=== PATIENT | male | born 1935 | race Caucasian/White ===

== ENCOUNTER 2018-06-01 06:10 | Day surgery (SDC) | payer OTHER ==
[2018-05-30 16:15] VITALS: BMI 27.2
[2018-06-01] MEDS ORDERED: LIDOCAINE HCL 1%, 10 MG/ML (20ML VIAL) ONE (07:21)
[2018-06-01] MEDS ORDERED: BUPIVACAINE HCL/PF 0.5% (5MG/ML) 10 ML VIAL ONE (07:21)
[2018-06-01] MEDS ORDERED: LIDOCAINE HCL/PF 2% SDV 5ML VIAL ONE (07:29)
[2018-06-01] MEDS ORDERED: MIDAZOLAM HCL 2 MG/2 ML SINGLE DOSE VIAL ONE (07:30)
[2018-06-01] MEDS ORDERED: PROPOFOL 20 ML ONE (07:30)
[2018-06-01] MEDS ORDERED: ePHEDrine SULFATE 50 MG/1 ML AMPULE ONE (07:30)
[2018-06-01] MEDS ORDERED: SUCCINYLCHOLINE CHLORIDE 200 MG/10 ML VIAL ONE (07:30)
[2018-06-01] MEDS ORDERED: KETOROLAC TROMETHAMINE 30 MG/1 ML VIAL ONE (07:31)
[2018-06-01] MEDS ORDERED: DEXAMETHASONE SOD PHOSPHATE 4 MG/1 ML VIAL ONE (07:31)
[2018-06-01] MEDS ORDERED: SODIUM CHLORIDE 0.9% P/F 10 ML VIAL IJ ONE (07:32)
[2018-06-01] MEDS ORDERED: ONDANSETRON 4 MG/2 ML VIAL IVPUSH PRN (07:34)
[2018-06-01] MEDS ORDERED: LACTATED RINGERS SOLUTION 1,000 ML IV SCH (07:45)
--- NOTE | 2018-06-01 08:15 | HP ---
Satellite [facility] - Chief Complaint Chief Complaint: left hand pain and numbness History of Present Illness: left CTS History Source: Patient Limitations to Obtaining History: No Limitations - Past Medical History Allergies/Adverse Reactions: Allergies Allergy/AdvReac Type Severity Reaction Status Date / Time No Known Drug Allergies Allergy Verified 06/01/18 06:54 - Current Medications Current Medications: Home Medications Medication Instructions Recorded Allopurinol [Zyloprim -] 100 mg PO DAILY 05/30/18 Amlodipine Besylate 10 mg PO DAILY 05/30/18 Aspirin Coated [Ecotrin -] 81 mg PO DAILY 05/30/18 Cholecalciferol (Vitamin D3) 2,000 unit PO DAILY 05/30/18 [Vitamin D] Glucosamine/D3/Boswellia Suly 1 each PO DAILY 05/30/18 [Osteo Bi-Flex Tablet] Insulin Glargine,Hum.rec.anlog 25 units SQ HS 05/30/18 [Lantus Solostar PEN (NF)] Lactobacillus 3/Fos/Pantethine 1 each PO DAILY 05/30/18 [Probiotic & Acidophilus Cap] Latanoprost 0.005% Eye Drops 1 drop OU HS 05/30/18 [Xalatan 0.005% Eye Drops -] Multivit-Min/FA/Lycopen/Lutein 1 each PO DAILY 05/30/18 [Centrum Silver Men Tablet] [place]-3 Fatty Acids/Fish Oil [Fish 1 tab PO DAILY 05/30/18 Oil 1,000 mg Capsule] Ramipril [Altace] 5 mg PO DAILY 05/30/18 Simvastatin [Zocor -] 20 mg PO HS 05/30/18 Tamsulosin HCl 0.4 mg PO HS 05/30/18 Satellite Physical Exam - Physical Examination Vital Signs: Vital Signs Period Temp Pulse Resp BP Sys/Guzman Pulse Ox Last 24 Hr 98.1 F 80 18 147/78 100 General Appearance: Well Nourished ENT: Clear Lung: Clear to auscultation Heart: Regular rate & rhythm Breasts: Soft Abdomen: Soft Extremities: No edema Satellite Impression/Plan - Impression/Plan Impression: left CTS Operative Procedure: left CTR Date to be Performed: 06/01/18
[2018-06-01] MEDS ORDERED: ceFAZolin SODIUM 1 GM VIAL IVPB ONE (08:25)
[2018-06-01] MEDS ORDERED: BUPIVACAINE HCL/PF (5 MG/ML) 30 ML VIAL IJ ONE (08:37)
[2018-06-01] MEDS ORDERED: LIDOCAINE HCL 1%, 10 MG/ML (20ML VIAL) PNB ONE (08:37)
--- NOTE | 2018-06-01 09:01 | OP ---
Operative Note - Note: Operative Date: 06/01/18 Pre-Operative Diagnosis: left CTS Operation: left CTR, tenosynovectomy Post-Operative Diagnosis: Same as Pre-op Surgeon: Pierce Mendoza Anesthesiologist/PILLOWCASE CUTTER: Rios Ochoa Anesthesia: Local, MAC Specimens Removed: tenosynovium Estimated Blood Loss (mls): 0 Drains, Volume Out (mls): 0 Blood Volume Replaced (mls): 0 Fluid Volume Replaced (mls): 500 Operative Report Dictated: Yes
[2018-06-01 09:45] VITALS: TEMP 97.5
--- NOTE | 2018-06-01 09:45 | SPEC ---
DATE OF OPERATION: PREOPERATIVE DIAGNOSIS: Left carpal tunnel syndrome. POSTOPERATIVE DIAGNOSIS: Left carpal tunnel syndrome. OPERATION: Left carpal tunnel release and tenosynovectomy. SURGEON: Pierce Mendoza MD ASSISTANTS: None. ANESTHESIOLOGIST: Yunior ANESTHESIA: MAC with local anesthetic 12 mL of 0.5% Marcaine and 1% Lidocaine mixed. DRAINS: None. COMPLICATIONS: None. BLOOD LOSS: None. BLOOD GIVEN: None. SPECIMENS: Tenosynovium, left wrist. FLUID REPLACEMENT: 500 mL of Plasmalyte. INDICATIONS: This patient is an 83-year-old male with a preoperative diagnosis of severe long-term left carpal tunnel syndrome. After understanding the potential risks, complications, alternatives and benefits of surgery versus nonsurgical treatment, the patient elected to undergo this procedure. DESCRIPTION OF PROCEDURE: The patient was brought to the operating room, peripheral IV placed, and IV sedation given. He received 1 g of IV Ancef. MAC anesthesia was induced. A tourniquet was applied to the left upper arm and the left upper extremity was prepped and draped in sterile fashion. The entire case was done under 3.8 loupe magnification. A marking pen was utilized to annmarie out a longitudinal incision in an already existing skin crease. Twenty mL of 0.5% Marcaine mixed with 1% Lidocaine was injected in and around the surgical incision. The left upper extremity was elevated, exsanguinated with an Esmarch bandage and the tourniquet inflated to 250 mmHg. A No. 15 scalpel blade was utilized to cut down through the skin. Subcutaneous hemostasis was achieved with the bipolar cautery. Dissection was done through the superficial palmar fascia. Self-retaining retractors were placed into the wound. Under direct visualization, the transverse carpal ligament was transected with a No. 15 scalpel blade, exposing the median nerve and the contents of the carpal tunnel. The distal and proximal extents of the release were completed with a Littler scissor and checked with irrigation and my small finger. They were seen to be complete. Limited dissection was done on the radial side of the median nerve and more extensive dissection was done on the ulnar side of the median nerve. The patients nerve was seen to be quite compressed by epineurium and therefore a limited epineurotomy was performed. A Ragnell retractor was used to gently retract the median nerve in a radial direction. The patient had a lot of tenosynovitis and therefore a tenosynovectomy was performed off all 9 flexor tendons. This was passed off the field as tenosynovium left wrist. The floor of the carpal tunnel was checked. There were no abnormal masses or ganglion cysts. The area was copiously irrigated and washed out and closure begun. Undyed 4-0 Vicryl was used to close the deep dermal layer. Final skin reapproximation was done with horizontal mattress 4-0 nylon sutures. The area was then washed and dried, covered with Xeroform, 4x4s, fluffs between the fingers, Webril and a 4-inch plaster roll was utilized to make a volar splint, which was then wrapped with Winter and Coban. The tourniquet was taken down after a total tourniquet time of 15 minutes. There were no complications during the case. The patient tolerated the procedure well and was brought to the ambulatory recovery room in stable condition. Eladio [id number]
[2018-06-01] MEDS ORDERED: DESFLURANE GAS 240 ML BOTTLE IH ONE (10:45)
[2018-06-01 11:50] VITALS: BP 138/63; PULSE 83
--- NOTE | 2018-06-02 16:00 | PATH ---
Surgical Pathology Report Patient Name: SUZANNE MAO [facility]. Rec. #: [id number] /Age/Gender: 1935 (Age: 83) / M Account: [id number] Location: [facility] SURGICAL Taken: 06/01/2018 Received: 06/01/2018 Reported: 06/02/2018 Physicians: Pierce Mendoza M.D. Specimen(s) Received LEFT TENOSYNOVIUM Clinical History Left carpal tunnel Final Diagnosis LEFT TENOSYNOVIUM, EXCISIONAL BIOPSY: TENOSYNOVIAL TISSUE WITH FIBROSIS AND DEGENERATIVE CHANGE. Electronically Signed Hieu Sena M.D. Gross Description Received in formalin labeled "left tenosynovium," is a 1.2 x 0.6 x 0.3 cm aggregate of hernandez-yellow portions of soft tissue, consistent with tenosynovium. The specimen is entirely submitted in one cassette. /06/01/201806/01/2018
== END 2018-06-01 11:50 | disposition home or self-care (01) ==
LOC: JASU-SURG 06:10
PROVIDERS: ATTEND Orthopaedic Surgery
PROC: 0LT60ZZ Resection of Left Lower Arm and Wrist Tendon, Open Approach (ICD-10-PCS; 2018-06-01)
PROC: 01N50ZZ Release Median Nerve, Open Approach (ICD-10-PCS; principal; 2018-06-01 08:00)
DX: G56.02 Carpal tunnel syndrome, left upper limb (principal); M65.842 Other synovitis and tenosynovitis, left hand
CPT/HCPCS: 82962; 88304-TC; 94760

== ENCOUNTER 2019-03-14 04:35 | Day surgery (SDC) | payer OTHER ==
[2019-03-13 12:32] VITALS: BMI 29.1
[2019-03-14] MEDS ORDERED: BUPIVACAINE HCL/PF 0.5% (5MG/ML) 10 ML VIAL ONE (07:45)
[2019-03-14] MEDS ORDERED: ceFAZolin SODIUM 1 GM VIAL ONE (08:00)
[2019-03-14] MEDS ORDERED: SODIUM CHLORIDE 0.9% P/F 10 ML VIAL IJ ONE (08:00)
[2019-03-14] MEDS ORDERED: KETOROLAC TROMETHAMINE 30 MG/1 ML VIAL ONE (08:00)
--- NOTE | 2019-03-14 08:24 | HP ---
Satellite [facility] - Chief Complaint Chief Complaint: right hand pain, numbness, tingling, weakness History of Present Illness: right CTS History Source: Patient Limitations to Obtaining History: No Limitations - Past Medical History Allergies/Adverse Reactions: Allergies Allergy/AdvReac Type Severity Reaction Status Date / Time No Known Drug Allergies Allergy Verified 03/14/19 07:54 - Current Medications Current Medications: Home Medications Medication Instructions Recorded Allopurinol [Zyloprim -] 100 mg PO DAILY 05/30/18 Amlodipine Besylate 10 mg PO DAILY 05/30/18 Aspirin Coated [Ecotrin -] 81 mg PO DAILY 05/30/18 Cholecalciferol (Vitamin D3) 2,000 unit PO DAILY 05/30/18 [Vitamin D] Insulin Glargine,Hum.rec.anlog 25 units SQ DAILY 05/30/18 [Lantus Solostar PEN (NF)] Lactobacillus 3/Fos/Pantethine 1 each PO DAILY 05/30/18 [Probiotic & Acidophilus Cap] Latanoprost 0.005% Eye Drops 1 drop OU HS 05/30/18 [Xalatan 0.005% Eye Drops -] Multivit-Min/FA/Lycopen/Lutein 1 each PO DAILY 05/30/18 [Centrum Silver Men Tablet] [place]-3 Fatty Acids/Fish Oil [Fish 1 tab PO DAILY 05/30/18 Oil 1,000 mg Capsule] Ramipril [Altace] 5 mg PO DAILY 05/30/18 Simvastatin [Zocor -] 20 mg PO HS 05/30/18 Tamsulosin HCl 0.4 mg PO HS 05/30/18 Acetaminophen [Tylenol Arthritis] 650 mg PO DAILY 03/13/19 Insulin Lispro [Humalog] 100 unit SQ PRN 03/13/19 Saw Sharon Fruit [Saw Sharon] 1,200 mg PO DAILY 03/13/19 Satellite Physical Exam - Physical Examination Vital Signs: Vital Signs Period Temp Pulse Resp BP Sys/Ugzman Pulse Ox Last 24 Hr 98.4 F 86 18 151/67 96 General Appearance: Well Nourished ENT: Clear Lung: Clear to auscultation Heart: Regular rate & rhythm Breasts: Soft Abdomen: Soft Extremities: No edema Satellite Impression/Plan - Impression/Plan Impression: right CTS Operative Procedure: right CTR, tenosynovectomy Date to be Performed: 03/14/19
[2019-03-14] MEDS ORDERED: ceFAZolin SODIUM 1 GM VIAL IVPB ONE (08:30)
[2019-03-14] MEDS ORDERED: PROPOFOL 20 ML ONE (08:33)
--- NOTE | 2019-03-14 09:03 | OP ---
Operative Note - Note: Operative Date: 03/14/19 ([facility]) Pre-Operative Diagnosis: right cts Operation: right ctr Post-Operative Diagnosis: Same as Pre-op Surgeon: Pierce Mendoza Anesthesiologist/HOURLY MANAGER: Bridgette Sparks Anesthesia: General, Local Specimens Removed: tenosynovium Estimated Blood Loss (mls): 0 (tourniquet) Operative Report Dictated: Yes
[2019-03-14] MEDS ORDERED: LIDOCAINE HCL 1%, 10 MG/ML (20ML VIAL) NR ONE (09:05)
[2019-03-14] MEDS ORDERED: BUPIVACAINE HCL/PF (5 MG/ML) 30 ML VIAL IJ ONE (09:06)
--- NOTE | 2019-03-14 09:50 | SPEC ---
DATE OF OPERATION: 03/14/2019 PREOPERATIVE DIAGNOSIS: Right carpal tunnel syndrome. POSTOPERATIVE DIAGNOSIS: Right carpal tunnel syndrome. PROCEDURE: Right carpal tunnel release and tenosynovectomy. SURGEON: Pierce Mendoza MD ASSISTANTS: None. ANESTHESIA: Nigel Bhardwaj CRNA, local injection 10 mL 0.5% Marcaine with lidocaine mixed, and MAC. DRAINS: None. COMPLICATIONS: None. SPECIMEN: Tenosynovium, right wrist. BLOOD LOSS: None. BLOOD GIVEN: None. FLUID REPLACEMENT: 500 mL. This patient is an 83-year-old right-hand dominant male with a preoperative diagnosis of severe long-term right carpal tunnel syndrome. After understanding the potential risks, complications, alternatives, and benefits of surgical versus nonsurgical treatment, the patient elected to undergo this procedure. DESCRIPTION OF PROCEDURE: The patient was brought to the operating room, peripheral IV placed and intravenous sedation was given. One gram of intravenous Ancef was given. MAC anesthesia was induced. A tourniquet was applied to the right upper arm and the right upper extremity was prepped and draped in sterile fashion. The entire case was done under 3.8 loupe magnification. A marking pen was utilized to annmarie out a longitudinal incision in an already existing skin crease. Twenty mL of 0.5% Marcaine mixed with 1% Lidocaine was injected in and around the surgical incision. The right upper extremity was elevated, exsanguinated with an Esmarch bandage and the tourniquet inflated to 250 mmHg. A No. 15 scalpel blade was utilized to cut down through the skin. Subcutaneous hemostasis was achieved with the bipolar cautery. Dissection was done through the superficial palmar fascia. Self-retaining retractors were placed into the wound. Under direct visualization, the transverse carpal ligament was transected with a No. 15 scalpel blade, exposing the median nerve and the contents of the carpal tunnel. The distal and proximal extents of the release were completed with a Littler scissor and checked with irrigation and my small finger. They were seen to be complete. Limited dissection was done on the radial side of the median nerve and more extensive dissection was done on the ulnar side of the median nerve. The patients nerve was seen to be quite compressed by epineurium and therefore a limited epineurotomy was performed. A Ragnell retractor was used to gently retract the median nerve in a radial direction. The patient had a lot of tenosynovitis and therefore a tenosynovectomy was performed off all 9 flexor tendons. This was passed off the field as tenosynovium right wrist. The floor of the carpal tunnel was checked. There were no abnormal masses or ganglion cysts. The area was copiously irrigated and washed out and closure begun. Undyed 4-0 Vicryl was used to close the deep dermal layer. Final skin reapproximation was done with horizontal mattress 4-0 nylon sutures. The area was then washed and dried, covered with Xeroform, 4x4s, fluffs between the fingers, Webril and a 4-inch plaster roll was utilized to make a volar splint, which was then wrapped with Winter and Coban. The tourniquet was taken down after a total tourniquet time of 18 minutes. There were no complications during the case. The patient tolerated the procedure well and was brought to the ambulatory recovery room in stable condition. Eladio [id number]
[2019-03-14] MEDS ORDERED: oxyCODONE HCL 5 MG TABLET PO PRN (09:52)
[2019-03-14] MEDS ORDERED: ONDANSETRON 4 MG/2 ML VIAL IVPUSH PRN (09:52)
[2019-03-14] MEDS ORDERED: LACTATED RINGERS SOLUTION 1,000 ML IV SCH (10:00)
[2019-03-14 11:43] VITALS: TEMP 97.8
[2019-03-14 14:02] VITALS: BP 123/61; PULSE 79
--- NOTE | 2019-03-16 10:41 | PATH ---
Surgical Pathology Report Patient Name: SUZANNE MAO Med. Rec. #: [id number] /Age/Gender: 1935 (Age: 83) / M Account: [id number] Location: [facility] SURGICAL Taken: 03/14/2019 Received: 03/14/2019 Reported: 03/16/2019 Physicians: Pierce Mendoza M.D. Specimen(s) Received TENOSYNOVIUM RIGHT WRIST Clinical History Carpal tunnel syndrome Final Diagnosis TENOSYNOVIUM, RIGHT WRIST, RELEASE: TENOSYNOVIUM. Electronically Signed Natalia Paul M.D. Gross Description Received in formalin, labeled "tenosynovium, right wrist" are four portions of glistening white soft tissue ranging from 0.5-1.4 cm in greatest dimension. Entirely submitted in one cassette. AE/03/14/2019 ebram/03/14/2019
== END 2019-03-14 13:20 | disposition home or self-care (01) ==
LOC: JASU-SURG 04:35
PROVIDERS: ATTEND Orthopaedic Surgery
PROC: 01N50ZZ Release Median Nerve, Open Approach (ICD-10-PCS; principal; 2019-03-14 09:00)
DX: G56.01 Carpal tunnel syndrome, right upper limb (principal)
CPT/HCPCS: 82962; 88304-TC; 94760

== ENCOUNTER 2019-03-18 09:40 | Inpatient (IN) | payer OTHER ==
[2019-03-18 10:06] VITALS: BMI 27.7
--- NOTE | 2019-03-18 10:29 | PDOC ---
History of Present Illness - General Chief Complaint: Injury Stated Complaint: FALL Time Seen by Provider: 03/18/19 10:07 History Source: Patient Exam Limitations: No Limitations - History of Present Illness Initial Comments: 83 yo M history anemia, CHF, DM, BPH, HTN, HL presents with R hip pain s/p fall approximately on 03/14. He states that he had same day surgery for R carpel tunnel release, fell later that day, injuring his R hip. He has been ambulating with his walker as per usual, however, he notes that he has continued to have pain with ambulation, so he sought evaluation. Denies weakness, numbness. No additional falls. No other injuries. Past History - Past Medical History Allergies/Adverse Reactions: Allergies Allergy/AdvReac Type Severity Reaction Status Date / Time No Known Drug Allergies Allergy Verified 03/14/19 07:54 Home Medications: Ambulatory Orders Allopurinol [Zyloprim -] 100 mg PO DAILY 05/30/18 Amlodipine Besylate 10 mg PO DAILY 05/30/18 Aspirin Coated [Ecotrin -] 81 mg PO DAILY 05/30/18 Cholecalciferol (Vitamin D3) [Vitamin D3] 2,000 unit PO DAILY 05/30/18 Insulin Glargine,Hum.rec.anlog [Lantus Solostar PEN -] 25 units SQ DAILY Lactobacillus 3/Fos/Pantethine [Probiotic & Acidophilus Cap] 1 each PO DAILY Latanoprost 0.005% Eye Drops [Xalatan 0.005% Eye Drops -] 1 drop OU HS 05/30/18 Multivit-Min/FA/Lycopen/Lutein [Centrum Silver Men Tablet] 1 each PO DAILY 05/30 [place]-3 Fatty Acids/Fish Oil [Fish Oil 1,000 mg Capsule] 1 tab PO DAILY Ramipril [Altace] 5 mg PO DAILY 05/30/18 Simvastatin [Zocor -] 20 mg PO HS 05/30/18 Tamsulosin HCl 0.4 mg PO HS 05/30/18 Acetaminophen [Tylenol Arthritis] 650 mg PO DAILY 03/13/19 Insulin Lispro [Humalog] 100 unit SQ PRN 03/13/19 Saw Campbell Fruit [Saw Campbell] 1,200 mg PO DAILY 03/13/19 Hydrocodone/Acetaminophen [Hydrocodone-Acetamin 5-325 mg] 1 each PO Q6H #20 tablet MDD 4 03/14/19 Anemia: Yes Cardiac Disorders: Yes (angiogram negative) CHF: Yes Diabetes: Yes GI Disorders: No Disorders: Yes (BPH) HTN: Yes Hypercholesterolemia: Yes Liver Disease: No Thyroid Disease: No - Surgical History Orthopedic Surgery: Yes (carpal tunnel left) - Suicide/Smoking/Psychosocial Hx Smoking History: Never smoked Have you smoked in the past 12 months: No Hx Alcohol Use: No Drug/Substance Use Hx: No Substance Use Type: None Review of Systems - Review of Systems Able to Perform ROS?: Yes Comments:: GENERAL/CONSTITUTIONAL: No fever or chills. No weakness. HEAD, EYES, EARS, NOSE AND THROAT: No change in vision. No ear pain or discharge. No sore throat. CARDIOVASCULAR: No chest pain or shortness of breath. RESPIRATORY: No cough, wheezing, or hemoptysis. GASTROINTESTINAL: No nausea, vomiting, diarrhea or constipation. GENITOURINARY: No dysuria, frequency, or change in urination. MUSCULOSKELETAL: +R hip pain. No neck or back pain. SKIN: No rash. NEUROLOGIC: No headache, vertigo, loss of consciousness, or change in strength/ sensation. ENDOCRINE: No increased thirst. No abnormal weight change. HEMATOLOGIC/LYMPHATIC: No anemia, easy bleeding, or history of blood clots. ALLERGIC/IMMUNOLOGIC: No hives or skin allergy. *Physical Exam - Vital Signs Last Vital Signs Temp Pulse Resp BP Pulse Ox 98.4 F 80 20 125/64 96 03/18/19 10:00 03/18/19 10:00 03/18/19 10:00 03/18/19 10:03/18/19 10:00 - Physical Exam Comments: GENERAL: Awake, alert, and fully oriented, in no acute distress HEAD: No signs of trauma EYES: PERRLA, EOMI, sclera anicteric, conjunctiva clear ENT: Auricles normal inspection, hearing grossly normal, nares patent, oropharynx clear without exudates. Moist mucosa NECK: Normal ROM, supple, no lymphadenopathy, JVD, or masses LUNGS: Breath sounds equal, clear to auscultation bilaterally. No wheezes, and no crackles HEART: Regular rate and rhythm, normal S1 and S2, no murmurs, rubs or gallops ABDOMEN: Soft, nontender, normoactive bowel sounds. No guarding, no rebound. No masses EXTREMITIES: R hip with ecchymosis overlying the hip joint. FROM. +Tenderness over the joint. No tenderness to the pelvis. R wrist in post-op splint. Remainder of extremities with normal range of motion, no edema. No clubbing or cyanosis. No cords, erythema, or tenderness NEUROLOGICAL: Cranial nerves II through XII grossly intact. Normal speech. Motor and sensation intact SKIN: Warm, Dry, normal turgor, no rashes or lesions noted. Heart Score/ECG Review - ECG Impressions Comment:: EKG read 11:28- sinus rhythm, 1st degree AV block with PACs ED Treatment Course - LABORATORY CBC & Chemistry Diagram: 03/18/19 11:16 03/18/19 11:16 Medical Decision Making - Medical Decision Making 03/18/19 11:[address] Silvestre for hip fx. Pt just had a carpal tunnel repair by Dr. Mendoza . 03/18/19 11:51 Case d/w Dr. Silvestre, will operate tomorrow. NPO p midnight, no aspirin. 03/18/19 12:03 Patient accepted to hospitalist service, Dr. Norris. *DC/Admit/Observation/Transfer Diagnosis at time of Disposition: Closed right hip fracture Qualifiers: Encounter type: initial encounter Qualified Code(s): S72.001A - Fracture of unspecified part of neck of right femur, initial encounter for closed fracture - Discharge Dispostion Condition at time of disposition: Stable Decision to Admit order: Yes - Referrals - Patient Instructions - Post Discharge Activity
[2019-03-18 11:26] LABS: BASO % 0.7 % (0-2.0); EOS % 4.8 % (0-4.5); HEMATOCRIT 29.4 % (35.4-49); HEMOGLOBIN 9.9 GM/dL (11.7-16.9); LYMPH % 21.3 % (8-40); MCH 31.5 pg (25.7-33.7); MCHC 33.8 g/dl (32.0-35.9); MEAN CELL VOLUME 93.3 fl (80-96); MEAN PLT VOLUME 7.9 fl (7.5-11.1); NEUT % 66.2 % (42.8-82.8); PLATELET COUNT 217 K/MM3 (134-434); RBC 3.15 M/mm3 (4.00-5.60); RDW 13.1 % (11.9-15.9); WHITE BLOOD COUNT 6.3 K/mm3 (4.0-10.0)
[2019-03-18 11:39] LABS: INR 1.04 (0.83-1.09); PROTHROMBIN TIME (PATIENT) 12.3 SEC (9.7-13.0)
[2019-03-18 11:48] LABS: ALBUMIN 3.2 g/dl (3.4-5.0); BILIRUBIN,TOTAL 0.5 mg/dL (0.2-1); CALCIUM 8.7 mg/dL (8.5-10.1); CREATININE 1.4 mg/dL (0.55-1.3); POTASSIUM 4.7 mmol/L (3.5-5.1); TOT PROT 6.5 g/dl (6.4-8.2)
[2019-03-18] MEDS ORDERED: ACETAMINOPHEN 325 MG TABLET (FP) PO ONE (12:42)
[2019-03-18] MEDS ORDERED: ACETAMINOPHEN 325 MG TABLET (FP) ONE (12:47)
--- NOTE | 2019-03-18 13:10 | HP ---
Admitting History and Physical - Admission Chief Complaint: RIGHT HIP PAIN/FALL 4 DAYS AGO History Source: Patient, Medical Record Limitations to Obtaining History: Physical Impairment - Past Medical History [employer]: Yes: Peripheral Neuropathy Cardiovascular: Yes: CHF, HTN, Hyperlipdemia Musculoskeletal: Yes: Other (left club foot) Endocrine: Yes: Diabetes Mellitus Additional Past Medical History: anemia, CHF, DM, BPH, HTN, HLD - Past Surgical History Additional Past Surgical History: left carpal tunnel surgery 06/01/2018 right carpal tunnel surgery 03/14/2019 - Smoking History Smoking history: Never smoked Have you smoked in the past 12 months: No - Alcohol/Substance Use Hx Alcohol Use: No History of Substance Use: reports: None - Social History ADL: Independent History of Recent Travel: No Home Medications - Allergies Allergies/Adverse Reactions: Allergies Allergy/AdvReac Type Severity Reaction Status Date / Time No Known Drug Allergies Allergy Verified 03/14/19 07:54 - Home Medications Home Medications: Ambulatory Orders Allopurinol [Zyloprim -] 100 mg PO DAILY 05/30/18 Amlodipine Besylate 10 mg PO DAILY 05/30/18 Aspirin Coated [Ecotrin -] 81 mg PO DAILY 05/30/18 Cholecalciferol (Vitamin D3) [Vitamin D3] 2,000 unit PO DAILY 05/30/18 Insulin Glargine,Hum.rec.anlog [Lantus Solostar PEN -] 25 units SQ DAILY Lactobacillus 3/Fos/Pantethine [Probiotic & Acidophilus Cap] 1 each PO DAILY Latanoprost 0.005% Eye Drops [Xalatan 0.005% Eye Drops -] 1 drop OU HS 05/30/18 Multivit-Min/FA/Lycopen/Lutein [Centrum Silver Men Tablet] 1 each PO DAILY 05/30 [place]-3 Fatty Acids/Fish Oil [Fish Oil 1,000 mg Capsule] 1 tab PO DAILY Ramipril [Altace] 5 mg PO DAILY 05/30/18 Simvastatin [Zocor -] 20 mg PO HS 05/30/18 Tamsulosin HCl 0.4 mg PO HS 05/30/18 Acetaminophen [Tylenol Arthritis] 650 mg PO DAILY 03/13/19 Insulin Lispro [Humalog] 100 unit SQ PRN 03/13/19 Saw [place] Fruit [Saw Boone] 1,200 mg PO DAILY 03/13/19 Hydrocodone/Acetaminophen [Hydrocodone-Acetamin 5-325 mg] 1 each PO Q6H #20 tablet MDD 4 03/14/19 Home Medications (free text): PATIENT TOOK ASA 81MG TODAY ALONG WITH HIS CARDIAC MEDS Review of Systems - Review of Systems Constitutional: reports: No Symptoms Eyes: reports: No Symptoms HENT: reports: No Symptoms Neck: reports: No Symptoms Cardiovascular: reports: No Symptoms Respiratory: reports: No Symptoms Gastrointestinal: reports: No Symptoms Genitourinary: reports: No Symptoms Musculoskeletal: reports: Joint Pain (right hip pain s/p fall), Other (right wrist pain s/p carpal tunnel surgery) Integumentary: reports: Bruising (right hip large purple bruising) Neurological: reports: Unsteady Gait Endocrine: reports: No Symptoms Hematology/Lymphatic: reports: No Symptoms Psychiatric: reports: No Symptoms Pain Intensity: 5 Physical Examination Vital Signs: Vital Signs Temperature 98.4 F 03/18/19 10:25 Pulse Rate 80 03/18/19 10:25 Respiratory Rate 20 03/18/19 10:25 Blood Pressure 125/64 03/18/19 10:25 O2 Sat by Pulse Oximetry (%) 96 03/18/19 10:00 Findings/Remarks: In no acute distress, resting in bed. denies dizziness or chest pain Constitutional: Yes: Well Nourished Eyes: Yes: WNL HENT: Yes: WNL Neck: Yes: WNL Cardiovascular: Yes: Regular Rate and Rhythm Respiratory: Yes: WNL Gastrointestinal: Yes: Normal Bowel Sounds ...Rectal Exam: Yes: Deferred Renal/: Yes: WNL Breast(s): Yes: WNL Musculoskeletal: Yes: Muscle Pain, Muscle Weakness, Other Extremities: Yes: Deformity, Shortened (right hip shortening) Edema: LLE: 3+ (non pitting - left club foot), RLE: 3+ (non pitting) Peripheral Pulses: Left Radial: 4+, Right Radial: 1+ (on soft cast) Integumentary: Yes: Bruising Wound/Incision: Yes: Other Neurological: Yes: WNL, Alert, Oriented, Unsteady Gait ...Motor Strength: LLE (club foot) Psychiatric: Yes: Alert, Oriented Labs: CBC, BMP 03/18/19 11:16 03/18/19 11:16 Imaging - Results X-ray: Image Reviewed EKG: Image Reviewed Problem List - Problems (1) Closed right hip fracture Assessment/Plan: Hip Xray with impacted right hip fracture. For surgical evaluation with orthopedics. will initiate/coordinate pre op clearance, chest xray, npo at midnight, type and screen, labs in a.m. pt/inr. SCDs. NPO at midnight Please note that patient reports taking his ASA 81mg this a.m. Cardiology clearance prior to surgery Code(s): S72.001A - FRACTURE OF UNSP PART OF NECK OF RIGHT FEMUR, INIT Qualifiers: Encounter type: initial encounter Qualified Code(s): S72.001A - Fracture of unspecified part of neck of right femur, initial encounter for closed fracture (2) Congestive heart failure (CHF) Assessment/Plan: No clinical signs of volume overload. monitor intake and output Code(s): I50.9 - HEART FAILURE, UNSPECIFIED (3) Hypertension Assessment/Plan: Continue home medications Monitor BP Code(s): I10 - ESSENTIAL (PRIMARY) HYPERTENSION (4) Hyperlipemia Assessment/Plan: Continue home statins lipid panel in a.m. Code(s): E78.5 - HYPERLIPIDEMIA, UNSPECIFIED (5) Diabetes mellitus Assessment/Plan: novolog SS, BGMS. hmga1c in a.m. diabetic diet Code(s): E11.9 - TYPE 2 DIABETES MELLITUS WITHOUT COMPLICATIONS Qualifiers: Diabetes mellitus type: type 2 (6) Anemia Assessment/Plan: iron studies, cbc in a.m. Code(s): D64.9 - ANEMIA, UNSPECIFIED (7) Fall due to stumbling Assessment/Plan: mechanical fall. PT after surgery, will need rehab. SW consulted. Code(s): W01.0XXA - FALL SAME LEV FROM SLIP/TRIP W/O STRIKE AGAINST OBJECT, INIT (8) Prophylactic measure Assessment/Plan: fen no ivf in the setting of CHF monitor electrolytes diabetic diet, npo midnight 03/19/19 prophy SCDs Code(s): Z29.9 - ENCOUNTER FOR PROPHYLACTIC MEASURES, UNSPECIFIED Assessment/Plan Patient is an 83 year old male with a significant past medical history of anemia , CHF, diabetes, BPH, hypertension, hyperlipidemia presents with right hip fracture. Patient states that he had right tunnel carpal tunnel surgery, after surgery he lost his balance out of the hospital with his walker and landed on his right hip. Initially felt well, but right hip pain worsened and persisted prompting an ED visit. He denies any LOC loss, dizziness, denies any fever, chills. Has not fallen since that initial fall. See above problem list Visit type - Emergency Visit Emergency Visit: Yes ED Registration Date: 03/18/19 Care time: The patient presented to the Emergency Department on the above date and was hospitalized for further evaluation of their emergent condition. - New Patient This patient is new to me today: Yes Date on this admission: 03/18/19 - Critical Care Critical Care patient: No
--- NOTE | 2019-03-18 13:41 | CON.CARD ---
Consult Consult Specialty:: Cardiology Referred by:: Medicine/Ortho Reason for Consultation:: preop evaluation - History of Present Illness Chief Complaint: fall hip pain History of Present Illness: 83 yo M history anemia, CHF chronic diastolic, abnormal stress [place] [facility] [place] Dr Elijah Dockery), DM, BPH, HTN, chol admitted with R hip pain s/p fall on 03/14. He states that he had same day surgery for R carpel tunnel release, fell on his way out of the hospital, injuring his R hip, found with hip fracture. No chest pain, sob, orthopnea, pnd or edema. Exercise tolerance at baseline is limited by DJD. He is awaiting right hip surgery. - History Source History Provided By: Patient, Medical Record - Alcohol/Substance Use Hx Alcohol Use: No - Smoking History Smoking history: Never smoked Have you smoked in the past 12 months: No Home Medications - Allergies Allergies/Adverse Reactions: Allergies Allergy/AdvReac Type Severity Reaction Status Date / Time No Known Drug Allergies Allergy Verified 03/14/19 07:54 - Home Medications Home Medications: Ambulatory Orders Allopurinol [Zyloprim -] 100 mg PO DAILY 05/30/18 Amlodipine Besylate 10 mg PO DAILY 05/30/18 Aspirin Coated [Ecotrin -] 81 mg PO DAILY 05/30/18 Cholecalciferol (Vitamin D3) [Vitamin D3] 2,000 unit PO DAILY 05/30/18 Insulin Glargine,Hum.rec.anlog [Lantus Solostar PEN -] 25 units SQ DAILY Lactobacillus 3/Fos/Pantethine [Probiotic & Acidophilus Cap] 1 each PO DAILY Latanoprost 0.005% Eye Drops [Xalatan 0.005% Eye Drops -] 1 drop OU HS 05/30/18 Multivit-Min/FA/Lycopen/Lutein [Centrum Silver Men Tablet] 1 each PO DAILY 05/30 [place]-3 Fatty Acids/Fish Oil [Fish Oil 1,000 mg Capsule] 1 tab PO DAILY Ramipril [Altace] 5 mg PO DAILY 05/30/18 Simvastatin [Zocor -] 20 mg PO HS 05/30/18 Tamsulosin HCl 0.4 mg PO HS 05/30/18 Acetaminophen [Tylenol Arthritis] 650 mg PO DAILY 03/13/19 Insulin Lispro [Humalog] 100 unit SQ PRN 03/13/19 Saw [place] Fruit [Saw [place]cad[place]] 1,200 mg PO DAILY 03/13/19 Hydrocodone/Acetaminophen [Hydrocodone-Acetamin 5-325 mg] 1 each PO Q6H #20 tablet MDD 4 03/14/19 Review of Systems - Review of Systems Constitutional: reports: No Symptoms Eyes: reports: No Symptoms HENT: reports: No Symptoms Neck: reports: No Symptoms Cardiovascular: reports: No Symptoms Respiratory: reports: No Symptoms Gastrointestinal: reports: No Symptoms Genitourinary: reports: No Symptoms Vital Signs: Vital Signs Temperature 98.4 F 03/18/19 10:25 Pulse Rate 80 03/18/19 10:25 Respiratory Rate 20 03/18/19 10:25 Blood Pressure 125/64 03/18/19 10:25 O2 Sat by Pulse Oximetry (%) 96 03/18/19 10:00 Constitutional: Yes: No Distress, Calm Eyes: Yes: Conjunctiva Clear, EOM Intact HENT: Yes: Atraumatic, Normocephalic Neck: Yes: Trachea Midline Respiratory: Yes: CTA Bilaterally Gastrointestinal: Yes: Normal Bowel Sounds, Soft Cardiovascular: Yes: Regular Rate and Rhythm JVD: No Carotid Bruit: No PMI: Non-Displaced Heart Sounds: Yes: S1, S2 Musculoskeletal: Yes: WNL Extremities: Yes: Internal Rotation (rt leg) Edema: No Peripheral Pulses WNL: Yes - Other Data Labs, Other Data: CBC, BMP 03/18/19 11:16 03/18/19 11:16 INR, PTT INR 1.04 (0.83-1.09) 03/18/19 11:16 Imaging - Results Chest X-ray: Report Reviewed EKG: Report Reviewed (nsr lad) Assessment/Plan 83 yo M history anemia, CHF chronic diastolic, abnormal stress test with [place] cardiac [place] [facility] [place] Dr Elijah Dockery), DM, BPH, HTN, chol admitted with R hip pain s/p fall on 03/14. He states that he had same day surgery for R carpel tunnel release, fell on his way out of the hospital, injuring his R hip, found with hip fracture. No chest pain, sob, orthopnea, pnd or edema. Exercise tolerance at baseline is limited by DJD. He is awaiting right hip surgery. -there are no cardiac contraindications to surgery. He is medically optimized for the procedure. He is at low risk of cardiac events. -No further preop testing is needed. -will see postop.
--- NOTE | 2019-03-18 14:01 | CONSULT ---
Consult - text type - Consultation Consultation Note: FULL CONSULT DICTATED IMP: R IMPACTED FEMORAL HIP FX PLAN: --> OR TOMORROW FOR CANNULATED SCREWS
[2019-03-18] MEDS ORDERED: ACETAMINOPHEN 325 MG TABLET (FP) PO PRN (14:19)
--- NOTE | 2019-03-18 15:56 | CONS ---
ORTHOPEDIC CONSULTATION DATE OF CONSULTATION: 03/18/2019 HISTORY OF PRESENT ILLNESS: The patient is an 83-year-old male who slipped and fell 2 days and has been complaining of persistent pain in his right hip ever since the fall. Eventually presented to the emergency room for evaluation. He is status post a right carpal tunnel release which we performed 4 days ago. PHYSICAL EXAM: RIGHT LOWER EXTREMITY: He has pain with range of motion of his right hip but equal limb lengths. Otherwise neurovascularly intact. Full range of motion of knee, ankle and toes. X-RAYS: Show a nondisplaced right femoral neck fracture. IMPRESSION: Impacted right nondisplaced femoral neck fracture. PLAN: Risks, benefits and alternatives discussed with the patient in great detail. The patient will be booked for cannulated screw procedure tomorrow. RAFA KOHLER M.D. SHALONDA/[id number]
[2019-03-18] MEDS: INSULIN SLIDING SCALE (NOVOLOG) 1 VIAL SQ SCH ×2 (16:56→21:02)
[2019-03-18] MEDS ORDERED: DEXTROSE 5%-WATER - 1,000 ML IV SCH (19:00)
[2019-03-18 19:51] LABS: EPI CELLS 0.6 /HPF (0-5/HPF); HYALINE CASTS 1 /lpf (0-8); URINE APPEARANCE CLEAR; URINE BACTERIA 5.4 /hpf (NEGATIVE); URINE BILIRUBIN NEGATIVE (NEGATIVE); URINE COLOR YELLOW; URINE GLUCOSE (UA) NEGATIVE (NEGATIVE); URINE KETONE NEGATIVE (NEGATIVE); URINE LEUK ESTERASE TRACE (NEGATIVE); URINE NITRITE NEGATIVE (NEGATIVE); URINE PROTEIN NEGATIVE (NEGATIVE); URINE RBC 1 /hpf (0-4); URINE WBC 6 /hpf (0-5)
[2019-03-18] MEDS: DOCUSATE SODIUM 100 MG CAPSULE (FP) PO SCH (21:22)
[2019-03-18] MEDS ORDERED: TAMSULOSIN HCL 0.4 MG CAP PO SCH (22:00)
[2019-03-18] MEDS ORDERED: LATANOPROST 0.005% OPHTH SOLN 2.5ML BOTTLE OU SCH (22:00)
[2019-03-18] MEDS ORDERED: ATORVASTATIN CA 10 MG TABLET (FP) PO SCH (22:00)
[2019-03-19] MEDS: DOCUSATE SODIUM 100 MG CAPSULE (FP) PO SCH ×3 (05:01→22:33)
[2019-03-19] MEDS: INSULIN SLIDING SCALE (NOVOLOG) 1 VIAL SQ SCH ×5 (06:31→22:48)
[2019-03-19 08:10] LABS: HEMATOCRIT 30.5 % (35.4-49); HEMOGLOBIN 10.1 GM/dL (11.7-16.9); MCH 31.3 pg (25.7-33.7); MCHC 33.3 g/dl (32.0-35.9); MEAN PLT VOLUME 8.2 fl (7.5-11.1); PLATELET COUNT 214 K/MM3 (134-434); RBC 3.24 M/mm3 (4.00-5.60); RDW 13.3 % (11.9-15.9)
[2019-03-19 08:38] LABS: BILIRUBIN,TOTAL 0.5 mg/dL (0.2-1); CALCIUM 8.5 mg/dL (8.5-10.1); CREATININE 1.3 mg/dL (0.55-1.3); MAGNESIUM 1.9 mg/dL (1.8-2.4); POTASSIUM 4.4 mmol/L (3.5-5.1); TOT PROT 6.3 g/dl (6.4-8.2)
[2019-03-19 08:40] LABS: CHOLESTEROL 107 mg/dL (50-200); HDL CHOLESTEROL 48 mg/dL (40-60); TRIGLYCERIDES 78 mg/dL (0-150)
[2019-03-19] MEDS ORDERED: MORPHINE SULFATE 2 MG/ML VIAL IVPUSH PRN (08:45)
[2019-03-19 09:03] LABS: INR 1.03 (0.83-1.09); PROTHROMBIN TIME (PATIENT) 12.2 SEC (9.7-13.0)
--- NOTE | 2019-03-19 09:39 | PN ---
Progress Note, Physician History of Present Illness: Patient is an 83 year old male with a significant past medical history of anemia , CHF, diabetes, BPH, hypertension, hyperlipidemia presents with right hip fracture. Patient states that he had right tunnel carpal tunnel surgery, after surgery he lost his balance out of the hospital with his walker and landed on his right hip. Initially felt well, but right hip pain worsened and persisted prompting an ED visit. He denies any LOC loss, dizziness, denies any fever, chills. Has not fallen since that initial fall. See problem list - Current Medication List Current Medications: Active Medications Acetaminophen (Tylenol -) 650 mg PO Q6H PRN PRN Reason: PAIN LEVEL 4 - 6 Last Admin: 03/18/19 19:00 Dose: 650 mg Allopurinol (Zyloprim -) 100 mg PO DAILY [facility] Amlodipine Besylate (Norvasc -) 10 mg PO DAILY [facility] Atorvastatin Calcium (Lipitor -) 10 mg PO HS [facility] Last Admin: 03/18/19 21:22 Dose: 10 mg Cholecalciferol (Vitamin D3 -) 2,000 unit PO DAILY [facility] Docusate Sodium (Colace -) 100 mg PO TID [facility] Last Admin: 03/19/19 05:01 Dose: Not Given Dextrose (D5w -) 1,000 mls @ 30 mls/hr IV ASDIR [facility] Last Admin: 03/18/19 19:38 Dose: 30 mls/hr Insulin Aspart (Novolog Vial Sliding Scale -) 1 vial SQ ACHS [facility]; Protocol Last Admin: 03/19/19 06:31 Dose: Not Given Latanoprost (Xalatan 0.005% Eye Drops -) 1 drop OU [facility] Last Admin: 03/18/19 21:22 Dose: 1 drop Morphine Sulfate (Morphine Sulfate) 2 mg IVPUSH Q4H PRN PRN Reason: PAIN LEVEL 7 - 10 Ramipril (Altace -) 5 mg PO DAILY [facility] Tamsulosin HCl (Flomax -) 0.4 mg PO [facility] Last Admin: 03/18/19 21:22 Dose: 0.4 mg - Objective Vital Signs: Vital Signs Temperature 99.3 F 03/19/19 05:44 Pulse Rate 81 03/19/19 05:44 Respiratory Rate 21 H 03/19/19 05:44 Blood Pressure 123/64 03/19/19 05:44 O2 Sat by Pulse Oximetry (%) 96 03/18/19 10:00 Constitutional: Yes: Well Nourished Eyes: Yes: WNL Labs: CBC, BMP 03/19/19 07:55 03/19/19 07:55 INR, PTT INR 1.03 (0.83-1.09) 03/19/19 07:55 Problem List - Problems (1) Closed right hip fracture Assessment/Plan: Hip Xray with impacted right hip fracture. For OR today. Cleared by cardiology for procedure. Please give cardiac medications with sip of water. Maintain NPO Code(s): S72.001A - FRACTURE OF UNSP PART OF NECK OF RIGHT FEMUR, INIT Qualifiers: Encounter type: initial encounter Qualified Code(s): S72.001A - Fracture of unspecified part of neck of right femur, initial encounter for closed fracture (2) Congestive heart failure (CHF) Assessment/Plan: No clinical signs of volume overload. monitor intake and output Code(s): I50.9 - HEART FAILURE, UNSPECIFIED (3) Hypertension Assessment/Plan: Continue home medications Monitor BP Code(s): I10 - ESSENTIAL (PRIMARY) HYPERTENSION (4) Hyperlipemia Assessment/Plan: Continue home statins lipid panel noted Code(s): E78.5 - HYPERLIPIDEMIA, UNSPECIFIED (5) Diabetes mellitus Assessment/Plan: novolog SS, BGMS. hmga1c 6.6 diabetic diet Code(s): E11.9 - TYPE 2 DIABETES MELLITUS WITHOUT COMPLICATIONS Qualifiers: Diabetes mellitus type: type 2 (6) Anemia Assessment/Plan: iron studies, cbc in a.m. Code(s): D64.9 - ANEMIA, UNSPECIFIED (7) Fall due to stumbling Assessment/Plan: mechanical fall. PT after surgery, will need rehab. SW consulted. Code(s): W01.0XXA - FALL SAME LEV FROM SLIP/TRIP W/O STRIKE AGAINST OBJECT, INIT (8) Prophylactic measure Assessment/Plan: fen ivf while npo monitor electrolytes diabetic diet prophy SCDs, further anticoagulation per surgery Code(s): Z29.9 - ENCOUNTER FOR PROPHYLACTIC MEASURES, UNSPECIFIED Visit type - Emergency Visit Emergency Visit: Yes ED Registration Date: 03/18/19 Care time: The patient presented to the Emergency Department on the above date and was hospitalized for further evaluation of their emergent condition. - New Patient This patient is new to me today: No - Critical Care Critical Care patient: No - Discharge Referral Referred to [facility] Med P.C.: No
[2019-03-19] MEDS ORDERED: RAMIPRIL 5 MG CAPSULE (FP) PO SCH (10:00)
[2019-03-19] MEDS ORDERED: CHOLECALCIFEROL (VIT D3) 1,000 UNIT (25 MCG) TABLET PO SCH (10:00)
[2019-03-19] MEDS ORDERED: ALLOPURINOL 100 MG TABLET (FP) PO SCH (10:00)
[2019-03-19] MEDS ORDERED: amLODIPine BESYLATE 10 MG TABLET (FP) PO SCH (10:00)
--- NOTE | 2019-03-19 10:55 | PN ---
Progress Note, Physician Chief Complaint: Sonya FU Seen At 9:30AM No CP/dyspnea Planned Surgery today. History of Present Illness: 83 yo M history anemia, CHF chronic diastolic, abnormal stress test with negative cardiac cath at [facility] [place] in the past (sees Dr Elijah Dockery), DM, BPH, HTN, chol admitted with R hip pain s/p fall on 03/14. He states that he had same day surgery for R carpel tunnel release, fell on his way out of the hospital, injuring his R hip, found with hip fracture. No chest pain, sob, orthopnea, pnd or edema. Exercise tolerance at baseline is limited by DJD. He is awaiting right hip surgery. - Current Medication List Current Medications: Active Medications Acetaminophen (Tylenol -) 650 mg PO Q6H PRN PRN Reason: PAIN LEVEL 4 - 6 Last Admin: 03/18/19 19:00 Dose: 650 mg Allopurinol (Zyloprim -) 100 mg PO DAILY [facility] Last Admin: 03/19/19 09:49 Dose: Not Given Amlodipine Besylate (Norvasc -) 10 mg PO DAILY [facility] Last Admin: 03/19/19 09:37 Dose: 10 mg Atorvastatin Calcium (Lipitor -) 10 mg PO HS [facility] Last Admin: 03/18/19 21:22 Dose: 10 mg Cholecalciferol (Vitamin D3 -) 2,000 unit PO DAILY [facility] Last Admin: 03/19/19 09:48 Dose: Not Given Docusate Sodium (Colace -) 100 mg PO TID [facility] Last Admin: 03/19/19 05:01 Dose: Not Given Dextrose (D5w -) 1,000 mls @ 30 mls/hr IV ASDIR [facility] Last Admin: 03/18/19 19:38 Dose: 30 mls/hr Insulin Aspart (Novolog Vial Sliding Scale -) 1 vial SQ ACHS [facility]; Protocol Last Admin: 03/19/19 06:31 Dose: Not Given Latanoprost (Xalatan 0.005% Eye Drops -) 1 drop OU HS [facility] Last Admin: 03/18/19 21:22 Dose: 1 drop Morphine Sulfate (Morphine Sulfate) 2 mg IVPUSH Q4H PRN PRN Reason: PAIN LEVEL 7 - 10 Last Admin: 03/19/19 09:38 Dose: 2 mg Ramipril (Altace -) 5 mg PO DAILY [facility] Last Admin: 03/19/19 09:37 Dose: 5 mg Tamsulosin HCl (Flomax -) 0.4 mg PO HS [facility] Last Admin: 03/18/19 21:22 Dose: 0.4 mg - Objective Vital Signs: Vital Signs Temperature 99.3 F 03/19/19 05:44 Pulse Rate 81 03/19/19 05:44 Respiratory Rate 21 H 03/19/19 05:44 Blood Pressure 123/64 03/19/19 05:44 O2 Sat by Pulse Oximetry (%) 96 03/18/19 10:00 Constitutional: Yes: Well Nourished, No Distress Eyes: Yes: Conjunctiva Clear, EOM Intact HENT: Yes: Atraumatic, Normocephalic Neck: Yes: Supple, Trachea Midline Cardiovascular: Yes: Regular Rate and Rhythm Respiratory: Yes: Regular, CTA Bilaterally Gastrointestinal: Yes: Normal Bowel Sounds, Soft Edema: No Labs: CBC, BMP 03/19/19 07:55 03/19/19 07:55 INR, PTT INR 1.03 (0.83-1.09) 03/19/19 07:55 Problem List - Problems (1) Closed right hip fracture Code(s): S72.001A - FRACTURE OF UNSP PART OF NECK OF RIGHT FEMUR, INIT Qualifiers: Encounter type: initial encounter Qualified Code(s): S72.001A - Fracture of unspecified part of neck of right femur, initial encounter for closed fracture (2) Congestive heart failure (CHF) Code(s): I50.9 - HEART FAILURE, UNSPECIFIED Assessment/Plan 83 yo M history anemia, CHF chronic diastolic, abnormal stress test with negative cardiac cath at [facility] [place] in the past (sees Dr Elijah Dockery), DM, BPH, HTN, chol admitted with R hip pain s/p fall on 03/14. He states that he had same day surgery for R carpel tunnel release, fell on his way out of the hospital, injuring his R hip, found with hip fracture. No chest pain, sob, orthopnea, pnd or edema. Exercise tolerance at baseline is limited by DJD. He is awaiting right hip surgery. -there are no cardiac contraindications to surgery. He is medically optimized for the procedure. He is at low risk of cardiac events. -No further preop testing is needed. -will see postop.
--- NOTE | 2019-03-19 11:04 | EKG ---
Test Reason : Blood Pressure : / mmHG Vent. Rate : 079 BPM Atrial Rate : 079 BPM P-R Int : 214 ms QRS Dur : 096 ms QT Int : 368 ms P-R-T Axes : 051 -33 091 degrees QTc Int : 421 ms SINUS RHYTHM WITH SINUS ARRHYTHMIA WITH 1ST DEGREE A-V BLOCK LEFT AXIS DEVIATION CANNOT RULE OUT ANTERIOR INFARCT , AGE UNDETERMINED ABNORMAL ECG NO PREVIOUS ECGS AVAILABLE Confirmed by JAKE HENDERSON, JAMIE ([id number]) on 03/19/2019 11:04:23 AM Referred By: Confirmed By:JAMIE JOSEPH MD
[2019-03-19] MEDS ORDERED: BUPIVACAINE HCL/PF 0.5% (5MG/ML) 10 ML VIAL ONE (16:04)
[2019-03-19] MEDS ORDERED: ceFAZolin SODIUM 1 GM VIAL IVPB ONE ×2 (16:45)
[2019-03-19] MEDS ORDERED: MIDAZOLAM HCL 2 MG/2 ML SINGLE DOSE VIAL ONE (16:45)
--- NOTE | 2019-03-19 16:59 | OP ---
Operative Note - Note: [facility] Pre-Operative Diagnosis: right femoral neck fx Operation: right hip cannulated screws Post-Operative Diagnosis: Same as Pre-op Surgeon: Pierce Mendoza Property Condition Assessor: Bayron Silvestre) Anesthesiologist/BIBLE WORKER: Soren Medina Anesthesia: Spinal Estimated Blood Loss (mls): 50 Operative Report Dictated: Yes
[2019-03-19] MEDS ORDERED: ONDANSETRON 4 MG/2 ML VIAL IVPUSH PRN (17:34)
[2019-03-19] MEDS ORDERED: PROMETHAZINE HCL 25 MG/1 ML VIAL IVPUSH PRN (17:34)
[2019-03-19] MEDS ORDERED: ONDANSETRON 4 MG/2 ML VIAL ONE (19:41)
[2019-03-19] MEDS: MORPHINE SULFATE 2 MG/ML VIAL IVPUSH PRN (20:34)
[2019-03-19] MEDS: DEXTROSE 5%-WATER - 1,000 ML IV SCH (20:35)
[2019-03-19] MEDS: CEFAZOLIN 2 GM/D5W 2 GM/50 ML ML IVPB SCH (22:31)
[2019-03-19] MEDS: LATANOPROST 0.005% OPHTH SOLN 2.5ML BOTTLE OU SCH (22:31)
[2019-03-19] MEDS: TAMSULOSIN HCL 0.4 MG CAP PO SCH (22:33)
[2019-03-19] MEDS: ATORVASTATIN CA 10 MG TABLET (FP) PO SCH (22:33)
[2019-03-19] MEDS ORDERED: CEFAZOLIN 2 GM/D5W 2 GM/50 ML ML IVPB SCH (23:00)
[2019-03-19] MEDS: oxyCODONE HCL 5 MG TABLET PO PRN (23:32)
[2019-03-19] MEDS: ACETAMINOPHEN 325 MG TABLET (FP) PO PRN (23:33)
[2019-03-20] MEDS: DOCUSATE SODIUM 100 MG CAPSULE (FP) PO SCH ×3 (06:37→21:57)
[2019-03-20] MEDS: CEFAZOLIN 2 GM/D5W 2 GM/50 ML ML IVPB SCH (06:38)
[2019-03-20] MEDS: INSULIN SLIDING SCALE (NOVOLOG) 1 VIAL SQ SCH ×4 (06:39→21:57)
[2019-03-20 06:48] LABS: HEMATOCRIT 21.8 % (35.4-49); HEMOGLOBIN 7.5 GM/dL (11.7-16.9); MCH 31.9 pg (25.7-33.7); MCHC 34.2 g/dl (32.0-35.9); MEAN PLT VOLUME 8.6 fl (7.5-11.1); PLATELET COUNT 198 K/MM3 (134-434); RBC 2.34 M/mm3 (4.00-5.60); RDW 12.9 % (11.9-15.9); WHITE BLOOD COUNT 8.1 K/mm3 (4.0-10.0)
[2019-03-20] MEDS: oxyCODONE HCL 5 MG TABLET PO PRN ×2 (07:08→13:25)
[2019-03-20] MEDS: ACETAMINOPHEN 325 MG TABLET (FP) PO PRN (07:08)
[2019-03-20 07:12] LABS: CALCIUM 8.1 mg/dL (8.5-10.1); CREATININE 1.3 mg/dL (0.55-1.3); POTASSIUM 5.1 mmol/L (3.5-5.1)
--- NOTE | 2019-03-20 08:31 | PN ---
Progress Note (short form) - Note Progress Note: POD1 s/p right hip cannulated screws under spinal anesthesia. Pt is resting comfortably in minimal pain. Doing well, with no apparent anesthetic issues/ complications.
[2019-03-20] MEDS: ALLOPURINOL 100 MG TABLET (FP) PO SCH (09:33)
[2019-03-20] MEDS: CHOLECALCIFEROL (VIT D3) 1,000 UNIT (25 MCG) TABLET PO SCH (09:34)
[2019-03-20] MEDS: RAMIPRIL 5 MG CAPSULE (FP) PO SCH (09:34)
[2019-03-20] MEDS: ENOXAPARIN NA (PORCINE) 40 MG/0.4 ML DISP.SYRIN SQ SCH (09:35)
[2019-03-20] MEDS: amLODIPine BESYLATE 10 MG TABLET (FP) PO SCH (09:39)
[2019-03-20] MEDS ORDERED: ENOXAPARIN NA (PORCINE) 40 MG/0.4 ML DISP.SYRIN SQ SCH (10:00)
--- NOTE | 2019-03-20 12:11 | PN ---
Progress Note, Physician History of Present Illness: seen and examined today in nad. s/p surgery yesterday which he tolerated from a cardiac standpoint. - Current Medication List Current Medications: Active Medications Acetaminophen (Tylenol -) 650 mg PO Q6H PRN PRN Reason: PAIN LEVEL 4 - 6 Last Admin: 03/20/19 07:08 Dose: 650 mg Allopurinol (Zyloprim -) 100 mg PO DAILY [facility] Last Admin: 03/20/19 09:33 Dose: 100 mg Amlodipine Besylate (Norvasc -) 10 mg PO DAILY [facility] Last Admin: 03/20/19 09:39 Dose: 10 mg Atorvastatin Calcium (Lipitor -) 10 mg PO HS [facility] Last Admin: 03/19/19 22:33 Dose: 10 mg Cholecalciferol (Vitamin D3 -) 2,000 unit PO DAILY [facility] Last Admin: 03/20/19 09:34 Dose: 2,000 unit Docusate Sodium (Colace -) 100 mg PO TID [facility] Last Admin: 03/20/19 06:37 Dose: 100 mg Enoxaparin Sodium (Lovenox -) 40 mg SQ DAILY [facility] Last Admin: 03/20/19 09:35 Dose: 40 mg Dextrose (D5w -) 1,000 mls @ 30 mls/hr IV ASDIR [facility] Last Admin: 03/19/19 20:35 Dose: 30 mls/hr Insulin Aspart (Novolog Vial Sliding Scale -) 1 vial SQ [facility]; Protocol Last Admin: 03/20/19 06:39 Dose: 2 units Latanoprost (Xalatan 0.005% Eye Drops -) 1 drop OU HS [facility] Last Admin: 03/19/19 22:31 Dose: 1 drop Morphine Sulfate (Morphine Sulfate) 2 mg IVPUSH Q4H PRN PRN Reason: PAIN LEVEL 7 - 10 Last Admin: 03/19/19 20:34 Dose: 2 mg Oxycodone HCl (Roxicodone -) 5 mg PO Q4H PRN PRN Reason: PAIN LEVEL 1-5 Stop: 03/20/19 17:33 Last Admin: 03/20/19 07:08 Dose: 5 mg Promethazine HCl (Phenergan Injection -) 12.5 mg IVPUSH Q6H PRN PRN Reason: NAUSEA-FOR RESCUE AFTER 15 MIN Ramipril (Altace -) 5 mg PO DAILY [facility] Last Admin: 03/20/19 09:34 Dose: 5 mg Tamsulosin HCl (Flomax -) 0.4 mg PO HS [facility] Last Admin: 03/19/19 22:33 Dose: 0.4 mg - Objective Vital Signs: Vital Signs Temperature 98.6 F 03/20/19 06:20 Pulse Rate 78 03/20/19 06:20 Respiratory Rate 20 03/20/19 06:20 Blood Pressure 110/52 L 03/20/19 06:20 O2 Sat by Pulse Oximetry (%) 92 L 03/19/19 21:00 Constitutional: Yes: No Distress, Calm Eyes: Yes: Conjunctiva Clear, EOM Intact HENT: Yes: Atraumatic, Normocephalic Neck: Yes: Supple, Trachea Midline Cardiovascular: Yes: Regular Rate and Rhythm, S1, S2. No: Bradycardia, Tachycardia, Pulse Irregular, Bruit, JVD, Gallop, Murmur, Rub, S3, S4, Varicosities Respiratory: Yes: Regular. No: Rales, Rhonchi, Wheezes Gastrointestinal: Yes: Normal Bowel Sounds, Soft. No: Distention, Tenderness Edema: No Peripheral Pulses WNL: Yes Neurological: Yes: Alert, Oriented Psychiatric: Yes: Alert, Oriented Labs: CBC, BMP 03/20/19 05:40 03/20/19 05:40 INR, PTT INR 1.03 (0.83-1.09) 03/19/19 07:55 - ....Imaging Chest X-ray: Report Reviewed, Image Reviewed EKG: Report Reviewed, Image Reviewed Other: Report Reviewed, Image Reviewed Assessment/Plan 83 yo M history anemia, CHF chronic diastolic, abnormal stress test with negative cardiac cath at [facility] in the past (sees Dr Elijah Dockery), DM, BPH, HTN, chol admitted with R hip pain s/p fall on 03/14. He states that he had same day surgery for R carpel tunnel release, fell on his way out of the hospital, injuring his R hip, found with hip fracture. No chest pain, sob, orthopnea, pnd or edema. Exercise tolerance at baseline is limited by DJD. He is awaiting right hip surgery. -tolerated hip surgery well from a cardiac standpoint without cardiac complications -No further inpatient cardiac work up is needed at this point. 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 Please call with any additional questions.
--- NOTE | 2019-03-20 17:59 | PN ---
Progress Note, Physician - Current Medication List Current Medications: Active Medications Acetaminophen (Tylenol -) 650 mg PO Q6H PRN PRN Reason: PAIN LEVEL 4 - 6 Last Admin: 03/20/19 07:08 Dose: 650 mg Allopurinol (Zyloprim -) 100 mg PO DAILY [facility] Last Admin: 03/20/19 09:33 Dose: 100 mg Amlodipine Besylate (Norvasc -) 10 mg PO DAILY [facility] Last Admin: 03/20/19 09:39 Dose: 10 mg Atorvastatin Calcium (Lipitor -) 10 mg PO HS [facility] Last Admin: 03/19/19 22:33 Dose: 10 mg Cholecalciferol (Vitamin D3 -) 2,000 unit PO DAILY [facility] Last Admin: 03/20/19 09:34 Dose: 2,000 unit Docusate Sodium (Colace -) 100 mg PO TID [facility] Last Admin: 03/20/19 13:24 Dose: 100 mg Enoxaparin Sodium (Lovenox -) 40 mg SQ DAILY [facility] Last Admin: 03/20/19 09:35 Dose: 40 mg Dextrose (D5w -) 1,000 mls @ 30 mls/hr IV ASDIR [facility] Last Admin: 03/19/19 20:35 Dose: 30 mls/hr Insulin Aspart (Novolog Vial Sliding Scale -) 1 vial SQ [facility]; Protocol Last Admin: 03/20/19 17:13 Dose: Not Given Latanoprost (Xalatan 0.005% Eye Drops -) 1 drop OU HS [facility] Last Admin: 03/19/19 22:31 Dose: 1 drop Morphine Sulfate (Morphine Sulfate) 2 mg IVPUSH Q4H PRN PRN Reason: PAIN LEVEL 7 - 10 Last Admin: 03/19/19 20:34 Dose: 2 mg Promethazine HCl (Phenergan Injection -) 12.5 mg IVPUSH Q6H PRN PRN Reason: NAUSEA-FOR RESCUE AFTER 15 MIN Ramipril (Altace -) 5 mg PO DAILY [facility] Last Admin: 03/20/19 09:34 Dose: 5 mg Tamsulosin HCl (Flomax -) 0.4 mg PO HS [facility] Last Admin: 03/19/19 22:33 Dose: 0.4 mg - Objective Vital Signs: Vital Signs Temperature 98.6 F 03/20/19 14:08 Pulse Rate 73 03/20/19 14:08 Respiratory Rate 20 /21/19 06:20 Blood Pressure 111/49 L 03/20/19 14:08 O2 Sat by Pulse Oximetry (%) 92 L 03/19/19 21:00 Constitutional: Yes: Well Nourished, No Distress, Calm Eyes: Yes: WNL, Conjunctiva Clear HENT: Yes: WNL, Atraumatic, Normocephalic Neck: Yes: WNL, Supple, Trachea Midline Cardiovascular: Yes: WNL, Regular Rate and Rhythm Respiratory: Yes: WNL, Regular, CTA Bilaterally Gastrointestinal: Yes: WNL, Normal Bowel Sounds, Soft ...Rectal Exam: Yes: Deferred Genitourinary: Yes: WNL Breast(s): Yes: WNL Musculoskeletal: Yes: WNL, Other Extremities: Yes: WNL Edema: No Peripheral Pulses WNL: Yes Integumentary: Yes: WNL, Incision (with tegaderm CDI) Wound/Incision: Yes: Clean/Dry, Dressing Dry and Intact Neurological: Yes: WNL, Alert, Oriented ...Motor Strength: RLE (4/5) Psychiatric: Yes: Alert, Oriented Labs: CBC, BMP 03/20/19 05:40 03/20/19 05:40 INR, PTT INR 1.03 (0.83-1.09) 03/19/19 07:55 Problem List - Problems (1) Anemia Code(s): D64.9 - ANEMIA, UNSPECIFIED (2) Closed right hip fracture Code(s): S72.001A - FRACTURE OF UNSP PART OF NECK OF RIGHT FEMUR, INIT Qualifiers: Encounter type: initial encounter Qualified Code(s): S72.001A - Fracture of unspecified part of neck of right femur, initial encounter for closed fracture (3) Diabetes mellitus Code(s): E11.9 - TYPE 2 DIABETES MELLITUS WITHOUT COMPLICATIONS Qualifiers: Diabetes mellitus type: type 2 Impression/Plan Impression/Plan: Problem List - Problems (1) Closed right hip fracture s/p right cannulated hip screws -monitor surgical -pain managment (2) Congestive heart failure (CHF) Assessment/Plan: No clinical signs of volume overload. monitor intake and output appreciate cardiology noted,no further inpatient w/u needed (3) Hypertension Assessment/Plan: Continue home medications Monitor BP (4) Hyperlipemia Assessment/Plan: Continue home statins l (5) Diabetes mellitus Assessment/Plan: novolog SS, BGMS. h cont diabetic diet (6) Anemia Assessment/Plan: transfuse 1u orbc follow cbc in am unless symptomatic then repeat tonight (7) Prophylactic measure Assessment/Plan: fen monitor electrolytes diabetic diet prophy continue lovenox Dispo discharge planning monitor as inpatient Visit type - Emergency Visit Emergency Visit: Yes ED Registration Date: 03/18/19 Care time: The patient presented to the Emergency Department on the above date and was hospitalized for further evaluation of their emergent condition. - New Patient This patient is new to me today: Yes Date on this admission: 03/20/19 - Critical Care Critical Care patient: No - Discharge Referral Referred to [facility] Med P.C.: No
[2019-03-20] MEDS: DEXTROSE 5%-WATER - 1,000 ML IV SCH (19:29)
[2019-03-20] MEDS: MORPHINE SULFATE 2 MG/ML VIAL IVPUSH PRN (20:32)
--- NOTE | 2019-03-20 20:44 | OP ---
DATE OF OPERATION: 03/19/2019 PREOPERATIVE DIAGNOSIS: Right nondisplaced impacted femoral neck fracture. POSTOPERATIVE DIAGNOSIS: Right nondisplaced impacted femoral neck fracture. PROCEDURE: Right hip cannulated screws. SURGEON: Chay Lagos MD COOK SHIP: Bayron Silvestre MD ANESTHESIA: Soren Medina MD: Spinal with sedation. DRAINS: None. COMPLICATIONS: None. SPECIMEN: None. BLOOD LOSS: Minimal. BLOOD GIVEN: None. FLUID REPLACEMENT: 500 mL Plasmalyte. IMPLANTS: We used three 6.0-mm [place] Asnis III cannulated screws, all of 85 mm in length. This patient is an 83-year-old male with a preoperative diagnosis of a right hip impacted nondisplaced femoral neck fracture, status post fall. After understanding the potential risks, complications, alternatives, and benefits to surgical versus nonsurgical treatment, the patient elected to undergo this procedure. He understands there is a risk of nonunion and need for additional surgery, possible removal of hardware, conversion to a total hip replacement, there is a lifelong risk of infection, and other potential risks were discussed. The patient was brought to the operating room. Peripheral IV placed. IV sedation given. Spinal anesthesia was inducted. MAC anesthesia was induced. He received 1 g of IV Ancef. Ample Webril was placed around both ankles. The patient was put onto the fracture table with a perineal post with mild longitudinal traction and internal rotation. X-rays were taken in the AP and lateral planes documenting excellent anatomic reduction of the femoral neck fracture. Next, the lateral aspect of the femur was prepped and draped in sterile fashion with a shower curtain. Fluoroscopy was brought in. Under guidance, a lateral incision was made. Subcutaneous hemostasis was achieved with a Bovie cautery. Dissection done down through the lateral fascia to the lateral aspect of the proximal femur. Periosteal dissection was done with the Vieyra elevator, exposing the bone. Next, an Asnis III [place] partially-threaded guidewire was placed into the central center position in the femur and documented to be in an excellent position in the AP and lateral planes. Next, using the triangular guide, I put in 2 more partially-threaded guidewires, 1 more anterior-superior and 1 more posterior-inferior; overall, it was a triangular pattern. X-rays were taken in multiple planes, including AP and lateral, documenting excellent position within the femoral neck across the fracture site into the femoral head. I liked the angle of the guidewires as well. Next, after measuring and overdrilling the lateral cortex, I put in three 85-mm Asnis III partially-threaded cannulated screws, 6.0. The length was good. The threads crossed the fracture site. The fragments were locked into an excellent position and fixation was very good. The guidewires were removed. Final x-rays were taken. The area was copiously irrigated and washed out. The deep fascia closed with 0 Vicryl sutures, the deep dermal layer closed with 2-0 Vicryl suture, and final skin reapproximation was done with missy. The area was then washed and dried and covered completely with Aquacel dressing. The patient was taken down out of the fracture table position. The patient was stable from a cardiovascular point of view throughout the case. Total operative time was approximately 30 minutes. There were no complications. CHAY LAGOS M.D. [id number]
[2019-03-20] MEDS ORDERED: INSULIN (NOVOLOG) ASPART 100 UNITS/ML 10ML VIAL ONE (20:56)
[2019-03-20] MEDS: ATORVASTATIN CA 10 MG TABLET (FP) PO SCH (21:57)
[2019-03-20] MEDS: TAMSULOSIN HCL 0.4 MG CAP PO SCH (21:57)
[2019-03-20] MEDS: LATANOPROST 0.005% OPHTH SOLN 2.5ML BOTTLE OU SCH (21:59)
[2019-03-21] MEDS: MORPHINE SULFATE 2 MG/ML VIAL IVPUSH PRN ×4 (06:10→20:31)
[2019-03-21] MEDS: DOCUSATE SODIUM 100 MG CAPSULE (FP) PO SCH ×3 (06:11→21:07)
[2019-03-21] MEDS: INSULIN SLIDING SCALE (NOVOLOG) 1 VIAL SQ SCH ×4 (06:11→21:06)
[2019-03-21] MEDS: DEXTROSE 5%-WATER - 1,000 ML IV SCH (06:18)
[2019-03-21 06:47] LABS: HEMATOCRIT 22.4 % (35.4-49); HEMOGLOBIN 7.7 GM/dL (11.7-16.9); MCH 31.6 pg (25.7-33.7); MCHC 34.2 g/dl (32.0-35.9); MEAN CELL VOLUME 92.5 fl (80-96); MEAN PLT VOLUME 8.2 fl (7.5-11.1); PLATELET COUNT 190 K/MM3 (134-434); RBC 2.42 M/mm3 (4.00-5.60); RDW 12.8 % (11.9-15.9); WHITE BLOOD COUNT 8.8 K/mm3 (4.0-10.0)
[2019-03-21] MEDS: RAMIPRIL 5 MG CAPSULE (FP) PO SCH (10:05)
[2019-03-21] MEDS: CHOLECALCIFEROL (VIT D3) 1,000 UNIT (25 MCG) TABLET PO SCH (10:05)
[2019-03-21] MEDS: ENOXAPARIN NA (PORCINE) 40 MG/0.4 ML DISP.SYRIN SQ SCH (10:05)
[2019-03-21] MEDS: ALLOPURINOL 100 MG TABLET (FP) PO SCH (10:05)
[2019-03-21] MEDS: amLODIPine BESYLATE 10 MG TABLET (FP) PO SCH (10:05)
[2019-03-21] MEDS ORDERED: INSULIN (NOVOLOG) ASPART 100 UNITS/ML 10ML VIAL ONE ×2 (11:04→20:58)
--- NOTE | 2019-03-21 12:03 | PN ---
Progress Note (short form) - Note Progress Note: Ortho Pt seen and examined s/p right hip cannulated screws pod #2, s/p right CTR pod # 6 Selected Entries 03/21/19 05:46 Temperature 98.7 F Pulse Rate 90 Respiratory 19 Rate Blood Pressure 118/58 L Laboratory Tests 03/21/19 05:00 WBC 8.8 Hgb 7.7 L Hct 22.4 L Plt Count 190 dressing c/d/i, calf soft, nt nvi a/p PT monitor h/h dvt ppx pain control d/c planning
[2019-03-21] MEDS: ACETAMINOPHEN 325 MG TABLET (FP) PO PRN (16:50)
--- NOTE | 2019-03-21 17:00 | PN ---
Progress Note, Physician Chief Complaint: hip fracture s/p IM nailing - Current Medication List Current Medications: Active Medications Acetaminophen (Tylenol -) 650 mg PO Q6H PRN PRN Reason: PAIN LEVEL 4 - 6 Last Admin: 03/21/19 16:50 Dose: 650 mg Allopurinol (Zyloprim -) 100 mg PO DAILY [facility] Last Admin: 03/21/19 10:05 Dose: 100 mg Amlodipine Besylate (Norvasc -) 10 mg PO DAILY [facility] Last Admin: 03/21/19 10:05 Dose: 10 mg Atorvastatin Calcium (Lipitor -) 10 mg PO HS [facility] Last Admin: 03/20/19 21:57 Dose: 10 mg Cholecalciferol (Vitamin D3 -) 2,000 unit PO DAILY [facility] Last Admin: 03/21/19 10:05 Dose: 2,000 unit Docusate Sodium (Colace -) 100 mg PO TID [facility] Last Admin: 03/21/19 13:59 Dose: 100 mg Enoxaparin Sodium (Lovenox -) 40 mg SQ DAILY [facility] Last Admin: 03/21/19 10:05 Dose: 40 mg Dextrose (D5w -) 1,000 mls @ 30 mls/hr IV ASDIR [facility] Last Admin: 03/21/19 06:18 Dose: 30 mls/hr Insulin Aspart (Novolog Vial Sliding Scale -) 1 vial SQ [facility]; Protocol Last Admin: 03/21/19 16:44 Dose: 2 units Latanoprost (Xalatan 0.005% Eye Drops -) 1 drop OU [facility] Last Admin: 03/20/19 21:59 Dose: 1 drop Morphine Sulfate (Morphine Sulfate) 2 mg IVPUSH Q4H PRN PRN Reason: PAIN LEVEL 7 - 10 Last Admin: 03/21/19 14:53 Dose: 2 mg Promethazine HCl (Phenergan Injection -) 12.5 mg IVPUSH Q6H PRN PRN Reason: NAUSEA-FOR RESCUE AFTER 15 MIN Ramipril (Altace -) 5 mg PO DAILY [facility] Last Admin: 03/21/19 10:05 Dose: 5 mg Tamsulosin HCl (Flomax -) 0.4 mg PO [facility] Last Admin: 03/20/19 21:57 Dose: 0.4 mg - Objective Vital Signs: Vital Signs Temperature 98 F 03/21/19 16:05 Pulse Rate 86 03/21/19 16:05 Respiratory Rate 19 03/21/19 16:05 Blood Pressure 123/57 L 03/21/19 16:05 O2 Sat by Pulse Oximetry (%) 94 L 03/21/19 09:00 Constitutional: Yes: Well Nourished, No Distress, Calm Eyes: Yes: WNL, Conjunctiva Clear, EOM Intact HENT: Yes: WNL, Atraumatic, Normocephalic Neck: Yes: WNL, Supple, Trachea Midline Cardiovascular: Yes: WNL, Regular Rate and Rhythm Respiratory: Yes: WNL, Regular, CTA Bilaterally, Diminished (at bases) Gastrointestinal: Yes: WNL, Normal Bowel Sounds ...Rectal Exam: Yes: WNL Genitourinary: Yes: WNL Breast(s): Yes: WNL Musculoskeletal: Yes: WNL Extremities: Yes: WNL Edema: No Edema: LLE: Trace, RLE: Trace Peripheral Pulses WNL: Yes Integumentary: Yes: WNL Wound/Incision: Yes: Clean/Dry, Well Approximated, Sutures Intact Neurological: Yes: WNL, Alert, Oriented ...Motor Strength: WNL Psychiatric: Yes: WNL, Alert, Oriented Labs: CBC, BMP 03/21/19 05:00 03/20/19 05:40 INR, PTT INR 1.03 (0.83-1.09) 03/19/19 07:55 Problem List - Problems (1) Anemia Code(s): D64.9 - ANEMIA, UNSPECIFIED (2) Closed right hip fracture Code(s): S72.001A - FRACTURE OF UNSP PART OF NECK OF RIGHT FEMUR, INIT Qualifiers: Encounter type: initial encounter Qualified Code(s): S72.001A - Fracture of unspecified part of neck of right femur, initial encounter for closed fracture (3) Diabetes mellitus Code(s): E11.9 - TYPE 2 DIABETES MELLITUS WITHOUT COMPLICATIONS Qualifiers: Diabetes mellitus type: type 2 Impression/Plan Impression/Plan: Problem List - Problems (1) Closed right hip fracture s/p right cannulated hip screws -monitor surgical -pain managment (2) Congestive heart failure (CHF) Assessment/Plan: No clinical signs of volume overload. monitor intake and output appreciate cardiology noted,no further inpatient w/u needed (3) Hypertension Assessment/Plan: Continue home medications Monitor BP (4) Hyperlipemia Assessment/Plan: Continue home statins l (5) Diabetes mellitus Assessment/Plan: novolog SS, BGMS. h cont diabetic diet (6) Anemia Assessment/Plan: transfuse another unit prbc, trasnfused pprevious day with 1U follow cbc in am unless symptomatic then repeat tonight (7) Prophylactic measure Assessment/Plan: fen monitor electrolytes diabetic diet prophy continue lovenox Dispo discharge planning requested placement in rehab after dc monitor as inpatient, full code Visit type - Emergency Visit Emergency Visit: Yes ED Registration Date: 03/18/19 Care time: The patient presented to the Emergency Department on the above date and was hospitalized for further evaluation of their emergent condition. - New Patient This patient is new to me today: No - Critical Care Critical Care patient: No - Discharge Referral Referred to [facility] Med P.C.: No
[2019-03-21] MEDS: TAMSULOSIN HCL 0.4 MG CAP PO SCH (21:07)
[2019-03-21] MEDS: ATORVASTATIN CA 10 MG TABLET (FP) PO SCH (21:07)
[2019-03-21] MEDS: LATANOPROST 0.005% OPHTH SOLN 2.5ML BOTTLE OU SCH (21:07)
[2019-03-21] MEDS ORDERED: SODIUM PHOSPHATE/NA BIPHOS 133 ML ENEMA PR ONE ×2 (22:28)
[2019-03-22] MEDS: MORPHINE SULFATE 2 MG/ML VIAL IVPUSH PRN (02:23)
[2019-03-22] MEDS ORDERED: MAGNESIUM HYDROX 2400MG/30ML ORAL SUSPENSION 30 ML CUP PO PRN (03:18)
[2019-03-22] MEDS: DOCUSATE SODIUM 100 MG CAPSULE (FP) PO SCH ×3 (05:58→21:44)
[2019-03-22] MEDS: INSULIN SLIDING SCALE (NOVOLOG) 1 VIAL SQ SCH ×4 (06:03→21:47)
[2019-03-22] MEDS ORDERED: INSULIN (NOVOLOG) ASPART 100 UNITS/ML 10ML VIAL ONE (07:21)
[2019-03-22 08:18] LABS: BASO % 0.5 % (0-2.0); EOS % 1.8 % (0-4.5); HEMATOCRIT 23.9 % (35.4-49); HEMOGLOBIN 8.2 GM/dL (11.7-16.9); LYMPH % 17.4 % (8-40); MCH 31.3 pg (25.7-33.7); MCHC 34.4 g/dl (32.0-35.9); MEAN PLT VOLUME 8.1 fl (7.5-11.1); MONO % 9.3 % (3.8-10.2); PLATELET COUNT 210 K/MM3 (134-434); RBC 2.63 M/mm3 (4.00-5.60); RDW 13.1 % (11.9-15.9); WHITE BLOOD COUNT 9.7 K/mm3 (4.0-10.0)
[2019-03-22 08:51] LABS: ALBUMIN 2.4 g/dl (3.4-5.0); ALK PHOS 89 U/L (45-117); ANION GAP 6 MMOL/L (8-16); BILIRUBIN,TOTAL 0.7 mg/dL (0.2-1); BLOOD UREA NITROGEN 25 mg/dL (7-18); CALCIUM 8.4 mg/dL (8.5-10.1); CHLORIDE 104 mmol/L (98-107); CO2 28 mmol/L (21-32); CREATININE 1.3 mg/dL (0.55-1.3); GLUCOSE,RANDOM 166 mg/dL (74-106); MAGNESIUM 2.1 mg/dL (1.8-2.4); POTASSIUM 4.6 mmol/L (3.5-5.1); SGOT/AST 16 U/L (15-37); SGPT/ALT < 6 U/L (13-61); SODIUM 138 mmol/L (136-145); TOT PROT 5.2 g/dl (6.4-8.2)
[2019-03-22] MEDS: CHOLECALCIFEROL (VIT D3) 1,000 UNIT (25 MCG) TABLET PO SCH (09:03)
[2019-03-22] MEDS: ENOXAPARIN NA (PORCINE) 40 MG/0.4 ML DISP.SYRIN SQ SCH (09:03)
[2019-03-22] MEDS: RAMIPRIL 5 MG CAPSULE (FP) PO SCH (09:03)
[2019-03-22] MEDS: amLODIPine BESYLATE 10 MG TABLET (FP) PO SCH (09:03)
[2019-03-22] MEDS: ALLOPURINOL 100 MG TABLET (FP) PO SCH (09:03)
[2019-03-22] MEDS: ACETAMINOPHEN 325 MG TABLET (FP) PO PRN ×2 (09:04→21:44)
[2019-03-22] MEDS ORDERED: PT OWN MED DRAWER 7, Y5N ONE (09:13)
--- NOTE | 2019-03-22 09:35 | PN ---
Progress Note (short form) - Note Progress Note: Ortho Pt seen and examined s/p right hip cannulated screws pod #3, s/p right CTR pod # 7 Selected Entries 03/22/19 05:57 Temperature 98.8 F Pulse Rate 94 H Respiratory 20 Rate Blood Pressure 132/70 Laboratory Tests 03/22/19 07:45 WBC 9.7 Hgb 8.2 L Hct 23.9 L Plt Count 210 dressing c/d/i, calf soft, nt nvi right hand- dressing removed, incision healing well, sutures in place a/p PT dvt ppx pain control d/c planning
[2019-03-22] MEDS: FERROUS SO4 325 MG TABLET (FP) PO SCH ×2 (11:40→17:36)
[2019-03-22] MEDS: MAGNESIUM CITRATE 300 ML BOTTLE PO ONE ×2 (11:41→14:05)
--- NOTE | 2019-03-22 15:43 | PN ---
Progress Note, Physician Chief Complaint: right hip cannulated screws pod #4, s/p right CTR pod #7 - Current Medication List Current Medications: Active Medications Acetaminophen (Tylenol -) 650 mg PO Q6H PRN PRN Reason: PAIN LEVEL 4 - 6 Last Admin: 03/22/19 09:04 Dose: 650 mg Allopurinol (Zyloprim -) 100 mg PO DAILY [facility] Last Admin: 03/22/19 09:03 Dose: 100 mg Amlodipine Besylate (Norvasc -) 10 mg PO DAILY [facility] Last Admin: 03/22/19 09:03 Dose: 10 mg Atorvastatin Calcium (Lipitor -) 10 mg PO HS [facility] Last Admin: 03/21/19 21:07 Dose: 10 mg Cholecalciferol (Vitamin D3 -) 2,000 unit PO DAILY [facility] Last Admin: 03/22/19 09:03 Dose: 2,000 unit Docusate Sodium (Colace -) 100 mg PO TID [facility] Last Admin: 03/22/19 14:04 Dose: 100 mg Enoxaparin Sodium (Lovenox -) 40 mg SQ DAILY [facility] Last Admin: 03/22/19 09:03 Dose: 40 mg Ferrous Sulfate (Feosol -) 325 mg PO TIDCM [facility] Last Admin: 03/22/19 11:40 Dose: 325 mg Dextrose (D5w -) 1,000 mls @ 30 mls/hr IV ASDIR [facility] Last Admin: 03/21/19 06:18 Dose: 30 mls/hr Insulin Aspart (Novolog Vial Sliding Scale -) 1 vial SQ [facility]; Protocol Last Admin: 03/22/19 11:41 Dose: 2 units Latanoprost (Xalatan 0.005% Eye Drops -) 1 drop OU [facility] Last Admin: 03/21/19 21:07 Dose: 1 drop Magnesium Hydroxide (Milk Of Magnesia -) 30 ml PO Q8H PRN PRN Reason: INDIGESTION Last Admin: 03/22/19 05:58 Dose: 30 ml Morphine Sulfate (Morphine Sulfate) 2 mg IVPUSH Q4H PRN PRN Reason: PAIN LEVEL 7 - 10 Last Admin: 03/22/19 02:23 Dose: 2 mg Promethazine HCl (Phenergan Injection -) 12.5 mg IVPUSH Q6H PRN PRN Reason: NAUSEA-FOR RESCUE AFTER 15 MIN Ramipril (Altace -) 5 mg PO DAILY [facility] Last Admin: 03/22/19 09:03 Dose: 5 mg Senna (Senna -) 1 tab PO [facility] Tamsulosin HCl (Flomax -) 0.4 mg PO [facility] Last Admin: 03/21/19 21:07 Dose: 0.4 mg - Objective Vital Signs: Vital Signs Temperature 99.2 F 03/22/19 09:00 Pulse Rate 80 03/22/19 09:00 Respiratory Rate 20 03/22/19 09:00 Blood Pressure 126/72 03/22/19 09:00 O2 Sat by Pulse Oximetry (%) 93 L 03/22/19 09:00 Constitutional: Yes: Well Nourished, No Distress, Calm Eyes: Yes: WNL, Conjunctiva Clear HENT: Yes: WNL, Atraumatic, Normocephalic Neck: Yes: WNL, Supple, Trachea Midline Cardiovascular: Yes: WNL, Regular Rate and Rhythm Respiratory: Yes: WNL, Regular, CTA Bilaterally Gastrointestinal: Yes: WNL, Normal Bowel Sounds, Soft ...Rectal Exam: Yes: WNL Genitourinary: Yes: WNL Musculoskeletal: Yes: WNL Extremities: Yes: WNL Edema: Yes Edema: LLE: Trace, RLE: Trace Peripheral Pulses WNL: Yes Integumentary: Yes: WNL Wound/Incision: Yes: Clean/Dry, Well Approximated (right hip primary dressing intact) Neurological: Yes: WNL, Alert, Oriented ...Motor Strength: WNL Psychiatric: Yes: WNL, Alert, Oriented Labs: CBC, BMP 03/22/19 07:45 03/22/19 07:45 INR, PTT INR 1.03 (0.83-1.09) 03/19/19 07:55 Problem List - Problems (1) Anemia Code(s): D64.9 - ANEMIA, UNSPECIFIED (2) Closed right hip fracture Code(s): S72.001A - FRACTURE OF UNSP PART OF NECK OF RIGHT FEMUR, INIT Qualifiers: Encounter type: initial encounter Qualified Code(s): S72.001A - Fracture of unspecified part of neck of right femur, initial encounter for closed fracture (3) Diabetes mellitus Code(s): E11.9 - TYPE 2 DIABETES MELLITUS WITHOUT COMPLICATIONS Qualifiers: Diabetes mellitus type: type 2 Impression/Plan Impression/Plan: Problem List - Problems (1) Closed right hip fracture s/p right cannulated hip screws -monitor surgical -pain managment (2) Congestive heart failure (CHF) Assessment/Plan: No clinical signs of volume overload. monitor intake and output appreciate cardiology note (3) Hypertension Assessment/Plan: Continue home medications Monitor BP (4) Hyperlipemia Assessment/Plan: Continue home statins l (5) Diabetes mellitus Assessment/Plan: novolog SS, BGMS. h cont diabetic diet (6) Anemia Assessment/Plan: transfused 2 u of prbc over past 2 days trebd CBC hemodynamically stable no need for further transfion (7) Prophylactic measure Assessment/Plan: fen monitor electrolytes diabetic diet prophy continue lovenox Dispo discharge planning placement obstained by SW at [facility]. Planned DC tmrw monitor as inpatient, full code Visit type - Emergency Visit Emergency Visit: Yes ED Registration Date: 03/18/19 Care time: The patient presented to the Emergency Department on the above date and was hospitalized for further evaluation of their emergent condition. - New Patient This patient is new to me today: No - Critical Care Critical Care patient: No - Discharge Referral Referred to [facility] Med P.C.: No
[2019-03-22] MEDS: ATORVASTATIN CA 10 MG TABLET (FP) PO SCH (21:43)
[2019-03-22] MEDS: TAMSULOSIN HCL 0.4 MG CAP PO SCH (21:44)
[2019-03-22] MEDS: LATANOPROST 0.005% OPHTH SOLN 2.5ML BOTTLE OU SCH (21:45)
[2019-03-22] MEDS ORDERED: SENNOSIDES 8.6MG TABLET (FP) PO SCH (22:00)
[2019-03-23] MEDS: DOCUSATE SODIUM 100 MG CAPSULE (FP) PO SCH ×2 (05:54→14:25)
[2019-03-23] MEDS: ACETAMINOPHEN 325 MG TABLET (FP) PO PRN (05:54)
[2019-03-23] MEDS: INSULIN SLIDING SCALE (NOVOLOG) 1 VIAL SQ SCH ×3 (06:04→18:17)
[2019-03-23] MEDS ORDERED: oxyCODONE HCL 5 MG TABLET PO ONE (07:50)
[2019-03-23] MEDS ORDERED: traMADol HCL 50 MG TABLET PO PRN (07:50)
[2019-03-23] MEDS: RAMIPRIL 5 MG CAPSULE (FP) PO SCH (10:22)
[2019-03-23] MEDS: ALLOPURINOL 100 MG TABLET (FP) PO SCH (10:22)
[2019-03-23] MEDS: CHOLECALCIFEROL (VIT D3) 1,000 UNIT (25 MCG) TABLET PO SCH (10:22)
[2019-03-23] MEDS: amLODIPine BESYLATE 10 MG TABLET (FP) PO SCH (10:22)
[2019-03-23] MEDS: ENOXAPARIN NA (PORCINE) 40 MG/0.4 ML DISP.SYRIN SQ SCH (10:23)
[2019-03-23] MEDS: FERROUS SO4 325 MG TABLET (FP) PO SCH ×3 (10:24→18:18)
[2019-03-23] MEDS ORDERED: PANTOPRAZOLE 40 MG TABLET (FP) PO SCH (11:30)
[2019-03-23 12:56] VITALS: BP 119/67; PULSE 105; TEMP 99.1
--- NOTE | 2019-03-23 15:12 | DS ---
Physical Examination Vital Signs: Vital Signs Temperature 99.1 F 03/23/19 10:00 Pulse Rate 105 H 03/23/19 10:00 Respiratory Rate 20 03/23/19 10:00 Blood Pressure 119/67 03/23/19 10:00 O2 Sat by Pulse Oximetry (%) 94 L 03/22/19 21:00 Constitutional: Yes: Well Nourished, No Distress, Calm Eyes: Yes: WNL, Conjunctiva Clear, EOM Intact HENT: Yes: WNL, Atraumatic, Normocephalic Neck: Yes: WNL, Supple, Trachea Midline Cardiovascular: Yes: WNL, Regular Rate and Rhythm Respiratory: Yes: WNL, Regular, CTA Bilaterally Gastrointestinal: Yes: WNL, Normal Bowel Sounds, Soft ...Rectal Exam: Yes: Deferred Renal/: Yes: WNL Musculoskeletal: Yes: Joint Stiffness Extremities: Yes: WNL Edema: No Peripheral Pulses WNL: Yes Integumentary: Yes: WNL Wound/Incision: Yes: Clean/Dry, Well Approximated, Dressing Dry and Intact Neurological: Yes: WNL, Alert, Oriented ...Motor Strength: WNL Psychiatric: Yes: WNL Labs: CBC, BMP 03/22/19 07:45 03/22/19 07:45 Discharge Summary Reason For Visit: CLOSE FRACTURE OF RIGHT HIP Current Active Problems Anemia (Acute) Closed right hip fracture (Acute) Congestive heart failure (CHF) (Acute) Diabetes mellitus (Acute) Fall due to stumbling (Acute) Hyperlipemia (Acute) Hypertension (Acute) Prophylactic measure (Acute) - Instructions Diet, Activity, Other Instructions: resume low sodium low cholesterol diet - Home Medications Comprehensive Discharge Medication List: Ambulatory Orders Allopurinol [Zyloprim -] 100 mg PO DAILY 05/30/18 Amlodipine Besylate 10 mg PO DAILY 05/30/18 Aspirin Coated [Ecotrin -] 81 mg PO DAILY 05/30/18 Cholecalciferol (Vitamin D3) [Vitamin D3] 2,000 unit PO DAILY 05/30/18 Insulin Glargine,Hum.rec.anlog [Lantus Solostar PEN -] 25 units SQ DAILY Lactobacillus 3/Fos/Pantethine [Probiotic & Acidophilus Cap] 1 each PO DAILY Latanoprost 0.005% Eye Drops [Xalatan 0.005% Eye Drops -] 1 drop OU HS 05/30/18 Multivit-Min/FA/Lycopen/Lutein [Centrum Silver Men Tablet] 1 each PO DAILY 05/30 [place]-3 Fatty Acids/Fish Oil [Fish Oil 1,000 mg Capsule] 1 tab PO DAILY Ramipril [Altace] 5 mg PO DAILY 05/30/18 Simvastatin [Zocor -] 20 mg PO HS 05/30/18 Tamsulosin HCl 0.4 mg PO HS 05/30/18 Acetaminophen [Tylenol Arthritis] 650 mg PO DAILY 03/13/19 Insulin Lispro [Humalog] 100 unit SQ PRN 03/13/19 Docusate Sodium [Colace -] 100 mg PO TID capsule 03/23/19 Enoxaparin [Lovenox -] 40 mg SQ DAILY disp.syrin 03/23/19 Ferrous Sulfate [Feosol] 325 mg PO TIDCM ud 03/23/19 Insulin Sliding Scale [Novolog Vial Sliding Scale -] 1 vial SQ ACHS units 03/23 Magnesium Hydrox 2400MG/30Ml [Milk of Magnesia -] 30 ml PO Q8H PRN cup Pantoprazole Sodium [Protonix -] 40 mg PO DAILY tablet.ec 03/23/19 Sennosides [Senna -] 1 tab PO HS tablet 03/23/19 traMADol HCL [Ultram -] 50 mg PO Q6H PRN tablet MDD 4 03/23/19 This patient is new to me today: No Emergency Visit: Yes ED Registration Date: 03/18/19 Care time: The patient presented to the Emergency Department on the above date and was hospitalized for further evaluation of their emergent condition. Critical Care patient: No - Discharge Referral Referred to [facility] No
== END 2019-03-23 18:29 | DRG 481 ==
LOC: JER 09:40 → JERBED 12:04 → J6S 13:17
PROVIDERS: ADMIT Internal Medicine; ATTEND Nurse Practitioner Acute Care
PROC: 0QS604Z Reposition Right Upper Femur with Internal Fixation Device, Open Approach (ICD-10-PCS; principal; 2019-03-19 15:30)
PROC: 30233N1 Transfusion of Nonautologous Red Blood Cells into Peripheral Vein, Percutaneous Approach (ICD-10-PCS; 2019-03-20)
DX: S72.091A Other fracture of head and neck of right femur, initial encounter for closed fracture (principal); I50.32 Chronic diastolic (congestive) heart failure; N40.0 Benign prostatic hyperplasia without lower urinary tract symptoms; E78.5 Hyperlipidemia, unspecified; I11.0 Hypertensive heart disease with heart failure; I44.0 Atrioventricular block, first degree; E11.42 Type 2 diabetes mellitus with diabetic polyneuropathy; Q66.89 Other specified congenital deformities of feet; D64.9 Anemia, unspecified; W01.0XXA Fall on same level from slipping, tripping and stumbling without subsequent striking against object, initial encounter
CPT/HCPCS: 36415; 36430; 36511; 71045-TC-FY; 73523-TC-FY; 74018-TC-FY; 76000-TC-FY; 80048; 80053; 80061; 81003; 82962; 83036; 83721; 83735; 85025; 85027; 85610; 86850; 86900; 86901; 86922; 93005; 93010; 93970-TC; 94760; 97116-GP; 97162-GP; 99284-25; P9038; P9058